=== PATIENT | male | born 1975 | race Caucasian/White ===

== ENCOUNTER 2022-04-09 01:39 | Observation (INO) ==
[2022-04-09] MEDS ORDERED: NITROGLYCERIN 2% OINTMENT 30GM TUBE EXT ONE (01:58)
[2022-04-09] MEDS ORDERED: ASPIRIN CHEW 324 MG PO STA (01:58)
[2022-04-09 05:18] LABS: D Dimer < 190 ug/L FEU (0-500)
[2022-04-09] MEDS ORDERED: ASPIRIN CHEW 324 MG ONE (05:33)
[2022-04-09] MEDS ORDERED: NITROGLYCERIN 2% OINTMENT 30GM TUBE ONE (05:33)
[2022-04-09 05:43] LABS: Albumin Globulin Ratio 1.8 (0.9-2); Albumin Level 4.6 gm/dl (3.4-5.0); BUN Creatinine Ratio 16.3 (10-20); Bilirubin,Total 0.5 mg/dl (0.2-1.0); Calcium 9.9 mg/dl (8.5-10.1); Creatinine Clr Calc Pharmacy 122.1 ml/min; Est GFR (African American) 120.5 ml/min; Globulin 2.5 gm/dl (2.5-4.0); Potassium 4.1 mmol/L (3.5-5.1); Total Protein 7.1 gm/dl (6.0-8.3); Troponin I High Sensitivity 3.1 pg/ml (0-20)
--- NOTE | 2022-04-09 05:53 | Emergency Department Note ---
History of Present Illness General Chief complaint: Shoulder Pain Stated complaint: L SHOULDER PAIN Time Seen by Provider: 04/09/22 01:47 History of Present Illness Maximum Pain Intensity: 8 This is a 46-year-old male presenting to the emergency department for evaluation of atraumatic left shoulder pain that began shortly after laying down to go to bed tonight. The patient states the pain was initially in the upper posterior part of the shoulder, but has slowly come to the left upper anterior shoulder. He has had the discomfort for about 2 hours and rates the pain a dull 8/10. The patient has a history of paroxysmal SVT and dyslipidemia, following with Dr. Hussein locally. The patient is on diltiazem daily as well as metoprolol as needed. He does not report any recent injuries or traumas to the shoulder. He is fairly active and tries to exercise regularly and has not noticed any shoulder pain until tonight. No fevers or chills. There is family history of cardiac disease. The patient is traveling out of state this weekend and is concerned his symptoms may be related to his heart. He did look at his apple watch which showed him in normal sinus rhythm at 66 bpm at home. He has not taken anything [id number] for his symptoms. Of note this patient was primarily seen during a [facility] downtime, and certain elements of the chart may be scanned into the medical record at a later date. Home Medications Medication Instructions Recorded Confirmed Type diltiazem HCl 120 mg capsule,24 120 mg PO DAILY 08/02/19 04/09/22 History hr,extended release famotidine 10 mg chewable tablet 10 - 20 mg PO DAILY PRN Acid Reflux 07/31/20 04/09/22 History metoprolol succinate 25 mg 25 mg PO DAILY PRN palpitations 05/28/21 04/09/22 Rx tablet,extended release 24 hr #90 tabs cetirizine 10 mg tablet (Zyrtec) 10 mg PO DAILY 06/19/21 04/09/22 History tacrolimus 0.03 % topical ointment 1 applic topical BID #100 grams 12/17/21 04/09/22 Rx (Protopic) Nexium 20 mg 04/09/22 History Allergies Allergy/AdvReac Type Severity Reaction Status Date / Time amoxicillin Allergy Intermediate full bad Verified 12/17/21 14:40 hives or rashes Penicillins Allergy Mild . Verified 12/17/21 14:40 cephalexin [From Keflex] Allergy Hives Verified 12/17/21 14:40 Past Med/Surg History Medical History Acquired deviated nasal septum Allergic rhinitis due to dust Allergic rhinitis due to other allergen Allergic rhinitis due to pollen BPH (benign prostatic hyperplasia) Cerumen impaction GERD (gastroesophageal reflux disease) Hoarseness Lower back pain Mixed conductive and sensorineural hearing loss of both ears Pelvic pain in male Prostatitis SVT (supraventricular tachycardia) Ulnar nerve palsy Urticaria Surgical History Status post LASIK surgery Family History Family/Other Cancer Heart disease Raynauds disease Rheumatoid arthritis Hyperlipidemia Father SVT (supraventricular tachycardia) Other Hypertension Social History Smoking Status: Never smoker Hx Alcohol Use: Yes Preferred Language: Hebrew marital status: current occupational status: employed Feels Safe at Home: Yes Review of Systems A total of 10 systems reviewed and were otherwise negative Physical Exam Vital Signs Vital Signs - 24 hr 04/09/22 01:42 04/09/22 06:06 Temperature 36.4 C L Temperature Source Temporal Artery Scan Pulse Rate 72 Pulse Rate [Apical] 68 Pulse Rhythm [Apical] Regular Respiratory Rate 18 18 Respiratory Effort / Characteristics Non-Labored Spontaneous Respiratory Depth Normal Normal Blood Pressure 155/100 H Blood Pressure [Left Arm] 125/82 Blood Pressure Mean 118 Blood Pressure Mean [Left Arm] 96 Blood Pressure Position Sitting Pulse Oximetry 100 98 Oxygen Delivery Method Room Air Room Air Sepsis Recent Fever Within 48 Hours No Sepsis New/Unexplained Change in Mental Status No Sepsis Action Taken by Nursing No Action Required VITALS: Vitals are noted on the nurse's note and reviewed by myself. Vital signs stable. GENERAL: Well-developed, well-nourished, white male, who is in no acute distress and resting comfortably. Patient is cooperative with the examination. HEAD: Normocephalic atraumatic. MOUTH: Mucous membranes moist. Tonsils are not enlarged. Pharynx without erythema, blood, or exudate. Uvula midline. Airway patent. NECK: Supple without nuchal rigidity. No lymphadenopathy. No thyromegaly. Cervical spine is nontender. HEART: Regular rate and rhythm without murmurs gallops or rubs. LUNGS: Clear to auscultation bilaterally without wheezes, rales or rhonchi. No retractions or accessory muscle use. ABDOMEN: Positive normal bowel sounds x 4. Soft, nontender, without masses or organomegaly. No guarding or rebound tenderness. MUSCULOSKELETAL: No muscle atrophy, erythema, or edema noted. Full range of motion in the left shoulder. No tenderness on palpation through this distribution. Vehicle Assembly Inspector strength is 5/5. NEURO: Patient was alert and oriented to person place and time. CN II through XII grossly intact. Course Administered Medications Discontinued Medications Aspirin (Aspirin Chew 324 Mg) 324 mg PO NOW [facility] Stop: 04/09/22 01:59 Last Admin: 04/09/22 05:35 Dose: 324 mg Documented By: DOMINGO Aspirin (Aspirin Chew 324 Mg) Confirm Administered Dose 324 mg .ROUTE .STWaveseis-MED ONE Stop: 04/09/22 05:34 Last Admin: 04/09/22 05:36 Dose: Not Given Documented By: DOMINGO Cetirizine HCl (Cetirizine Hcl 10 Mg Tablet) 10 mg PO DAILY [facility] Stop: 05/09/22 12:59 Last Admin: 04/09/22 14:06 Dose: Not Given Documented By: SRUTHI Diltiazem HCl (Diltiazem Er 120 Mg Capcr) 120 mg PO DAILY [facility] Stop: 05/09/22 12:59 Last Admin: 04/09/22 13:08 Dose: 120 mg Documented By: SRUTHI Nitroglycerin (Nitroglycerin 2% Ointment 30gm Tube) 1 inch EXT NOW ONE Stop: 04/09/22 01:59 Last Admin: 04/09/22 05:36 Dose: 1 inch Documented By: DOMINGO Nitroglycerin (Nitroglycerin 2% Ointment 30gm Tube) Confirm Administered Dose 18 inch .ROUTE .STK-MED ONE Stop: 04/09/22 05:34 Last Admin: 04/09/22 05:36 Dose: Not Given Documented By: DOMINGO Pantoprazole Sodium (Pantoprazole 40 Mg Tab) 40 mg PO DAILY [facility] Stop: 05/09/22 12:59 Last Admin: 04/09/22 14:06 Dose: Not Given Documented By: SRUTHI Medical Decision Making Differential Diagnosis Differential diagnosis includes, but is not limited to: Myocardial infarction, dysrhythmia, pericarditis, pneumothorax, aortic aneurysm/dissection, DVT/PE, anxiety, GERD, PUD, electrolyte imbalance, thyroid disorder, pneumonia, bronchitis, pancreatitis, and others Laboratory Data Result diagrams: 04/09/22 02:03 04/09/22 02:03 Lab Results 04/09/22 04/09/22 04/09/22 Range/Units 02:03 02:03 02:03 WBC 9.14 (4.8-10.8) K/ul RBC 5.69 (4.63-6.08) M/uL Hgb 15.8 (14.0-18.0) g/dl Hct 47.0 (40.1-51.0) % MCV 82.6 (80.0-100.0) fL MCH 27.8 (25.0-34.0) pg MCHC 33.6 (32.0-36.0) g/dL RDW Std Deviation 37.6 (36.4-46.3) fL RDW Coeff of Barbie 12.6 (11.5-14.5) % Plt Count 307 (130-400) K/uL MPV 9.3 L (9.4-12.4) fL Immature Gran % (Auto) 0.3 % Neut % (Auto) 38.4 % Lymph % (Auto) 46.0 % [place] % (Auto) 11.8 % Eos % (Auto) 3.1 % Baso % (Auto) 0.4 % Neut # (Auto) 3.51 (1.4-6.5) K/uL Lymph # (Auto) 4.20 H (1.2-3.4) K/uL [place] # (Auto) 1.08 H (0.24-0.82) K/uL Eos # (Auto) 0.28 (0-0.50) K/uL Baso # (Auto) 0.04 (0-0.2) K/uL Immature Gran # (Auto) 0.03 H (0.00-0.02) K/uL D-Dimer < 190 (0-500) ug/L FEU Sodium 138 (136-145) mmol/L Potassium 4.1 (3.5-5.1) mmol/L Chloride 104 (98-107) mmol/L Carbon Dioxide 27 (21-32) mmol/L Anion Gap 7 (3-11) BUN 14 (6-23) mg/dl Creatinine 0.86 (0.6-1.4) mg/dl Est Cr Clr Drug Dosing 122.1 ml/min Est GFR ( Amer) 120.5 ml/min Est GFR (Non-Af Amer) 104.0 ml/min BUN/Creatinine Ratio 16.3 (10-20) Glucose 84 (70-99(Fasting)) mg/dl Calcium 9.9 (8.5-10.1) mg/dl Total Bilirubin 0.5 (0.2-1.0) mg/dl AST 33 (13-39) U/L ALT 48 (7-52) U/L Alkaline Phosphatase 113 H (34-104) U/L Troponin I High Sens 3.1 (0-20) pg/ml Total Protein 7.1 (6.0-8.3) gm/dl Albumin 4.6 (3.4-5.0) gm/dl Globulin 2.5 (2.5-4.0) gm/dl Albumin/Globulin Ratio 1.8 (0.9-2) Lipase 13 (11-82) U/L SARS-CoV-2, RNA, NAAT (NEGATIVE) 04/09/22 04/09/22 Range/Units 04:50 06:11 WBC (4.8-10.8) K/ul RBC (4.63-6.08) M/uL Hgb (14.0-18.0) g/dl Hct (40.1-51.0) % MCV (80.0-100.0) fL MCH (25.0-34.0) pg MCHC (32.0-36.0) g/dL RDW Std Deviation (36.4-46.3) fL RDW Coeff of Barbie (11.5-14.5) % Plt Count (130-400) K/uL MPV (9.4-12.4) fL Immature Gran % (Auto) % Neut % (Auto) % Lymph % (Auto) % [place] % (Auto) % Eos % (Auto) % Baso % (Auto) % Neut # (Auto) (1.4-6.5) K/uL Lymph # (Auto) (1.2-3.4) K/uL [place] # (Auto) (0.24-0.82) K/uL Eos # (Auto) (0-0.50) K/uL Baso # (Auto) (0-0.2) K/uL Immature Gran # (Auto) (0.00-0.02) K/uL D-Dimer (0-500) ug/L FEU Sodium (136-145) mmol/L Potassium (3.5-5.1) mmol/L Chloride (98-107) mmol/L Carbon Dioxide (21-32) mmol/L Anion Gap (3-11) BUN (6-23) mg/dl Creatinine (0.6-1.4) mg/dl Est Cr Clr Drug Dosing ml/min Est GFR ( Amer) ml/min Est GFR (Non-Af Amer) ml/min BUN/Creatinine Ratio (10-20) Glucose (70-99(Fasting)) mg/dl Calcium (8.5-10.1) mg/dl Total Bilirubin (0.2-1.0) mg/dl AST (13-39) U/L ALT (7-52) U/L Alkaline Phosphatase (34-104) U/L Troponin I High Sens 2.7 (0-20) pg/ml Total Protein (6.0-8.3) gm/dl Albumin (3.4-5.0) gm/dl Globulin (2.5-4.0) gm/dl Albumin/Globulin Ratio (0.9-2) Lipase (11-82) U/L SARS-CoV-2, RNA, NAAT NEGATIVE (NEGATIVE) Imaging Data Radiologist's Impression: Shoulder X-Ray 04/09/22 01:49 XR shoulder LT min 2V routine CLINICAL HISTORY: shoulder pain TECHNIQUE: 3 views of the left shoulder were obtained. Comparison: Comparison is made to left shoulder radiographs 02/13/2016 FINDINGS: There is no evidence of an acute fracture. Joint spaces are well-preserved. The overlying soft tissues are unremarkable. The visualized portions of the lungs are clear. IMPRESSION: No evidence of acute osseous injury. ACT 112: Negative or not required by law. Electronically signed by: Oscar Crowe M.D. 04/09/2022 7:36 AM Chest X-Ray 04/09/22 06:49 XR chest 1V portable CLINICAL HISTORY: chest/shoulder pain TECHNIQUE: Single frontal radiograph of the chest was obtained. Comparison: None available at the time of this dictation. FINDINGS: No lines and tubes are seen. The cardiomediastinal silhouette is normal. Prominence and cephalization of the vasculature is seen. No evidence of pleural effusion or pneumothorax. IMPRESSION: Mild pulmonary edema. ACT 112: Negative or not required by law. Electronically signed by: Oscar Crowe M.D. 04/09/2022 7:04 AM ECG Data Attestation: I personally reviewed and interpreted this ECG as follows: Indication: + back/shoulder pain Additional Comments: Normal sinus rhythm @77bpm No significant ST elevation Minimal voltage criteria for LVH Nonspecific ST abnormality When compared with ECG of 02-NOV-2018 21:21, Premature ventricular complexes are no longer Present MDM Narrative Physical exam and history were performed. Nursing notes, EMR, and Medication List were personally reviewed. Patient was primarily seen during a [facility] downtime. Patient appears to have atypical left shoulder pain bringing him to the ER. The patient discomfort was initially more posterior, but is now in the anterior left shoulder. He is with full range of motion of the shoulder and does not have injury or trauma. No palpable tenderness is identified. The patient does have history of paroxysmal SVT and follows with Dr. Hussein locally. IV access was established and labs were obtained. He was hydrated normal saline and given aspirin and Nitropaste was applied. An order was placed for continuous cardiac monitoring. The monitor shows a rate of 72 with normal sinus rhythm. Blood work is as above and was reviewed. He does not have a significantly elevated white blood cell count, gross anemia, bandemia, or significant electrolyte imbalance. Troponin x2 is negative. D-dimer is negative. X-rays were reviewed by myself and radiology showing no acute process. COVID is negative. The patient did feel improved after the aspirin and nitro. Overall I have concern for the patient's symptoms. He is having atraumatic left shoulder pain and does have a heart history. He likely needs evaluation by cardiology on urgent basis, and because of his symptoms I did discuss the case with the on-call hospitalist team. They did agree to evaluate the patient here in the ER. Please see their dictation for further patient course, plan, disp osition. The chart was completed utilizing [employer] Speech Voice Recognition Software. Grammatical errors, random word insertions, pronoun errors, and incomplete sentences are an occasional consequence of this system due to software limitations, ambient noise, and hardware issues. Any formal questions or concerns about the content, text, or information contained within the body of this dictation should be directly addressed to the provider for clarification. . Impression & Plan Atypical chest pain, Left shoulder pain Discharge Plan Visit Data Chief Complaint: Shoulder Pain Stated Complaint: L SHOULDER PAIN ED Provider: Amara Irvin ED Midlevel Provider: Lauri Echeverria Discharge Problem: Atypical chest pain, Left shoulder pain Patient Disposition: Admitted As Inpatient Condition: Good Discharge Instructions Interventions: ED Discharge Assessment Last Done: 04/09/22 12:25
[2022-04-09 06:55] LABS: Basophils # (auto) 0.04 K/uL (0-0.2); Basophils % (auto) 0.4 %; Eosinophils # (auto) 0.28 K/uL (0-0.50); Eosinophils % (auto) 3.1 %; Hemoglobin 15.8 g/dl (14.0-18.0); Immature Granulocytes # (auto) 0.03 K/uL (0.00-0.02); Immature Granulocytes % (auto) 0.3 %; Mean Corpuscular Hemoglobin 27.8 pg (25.0-34.0); Mean Corpuscular Hgb Conc 33.6 g/dL (32.0-36.0); Mean Corpuscular Volume 82.6 fL (80.0-100.0); Mean Platelet Volume 9.3 fL (9.4-12.4); Monocytes # (auto) 1.08 K/uL (0.24-0.82); Monocytes % (auto) 11.8 %; Neutrophils # (auto) 3.51 K/uL (1.4-6.5); Neutrophils % (auto) 38.4 %; Platelet Count 307 K/uL (130-400); RDW Coefficient of Variation 12.6 % (11.5-14.5); RDW Standard Deviation 37.6 fL (36.4-46.3); Red Blood Count 5.69 M/uL (4.63-6.08); White Blood Count 9.14 K/ul (4.8-10.8)
--- NOTE | 2022-04-09 07:05 | XRay Report ---
XR chest 1V portable CLINICAL HISTORY: chest/shoulder pain TECHNIQUE: Single frontal radiograph of the chest was obtained. Comparison: None available at the time of this dictation. FINDINGS: No lines and tubes are seen. The cardiomediastinal silhouette is normal. Prominence and cephalization of the vasculature is seen. No evidence of pleural effusion or pneumothorax. IMPRESSION: Mild pulmonary edema. ACT 112: Negative or not required by law. Electronically signed by: Oscar Crowe M.D. 04/09/2022 7:04 AM
--- NOTE | 2022-04-09 07:37 | XRay Report ---
XR shoulder LT min 2V routine CLINICAL HISTORY: shoulder pain TECHNIQUE: 3 views of the left shoulder were obtained. Comparison: Comparison is made to left shoulder radiographs 02/13/2016 FINDINGS: There is no evidence of an acute fracture. Joint spaces are well-preserved. The overlying soft tissue s are unremarkable. The visualized portions of the lungs are clear. IMPRESSION: No evidence of acute osseous injury. ACT 112: Negative or not required by law. Electronically signed by: Oscar Crowe M.D. 04/09/2022 7:36 AM
--- NOTE | 2022-04-09 11:26 | Electrocardiogram Report ---
Test Reason : Blood Pressure : / mmHG Vent. Rate : 083 BPM Atrial Rate : 083 BPM P-R Int : 192 ms QRS Dur : 088 ms QT Int : 364 ms P-R-T Axes : 010 -33 -07 degrees QTc Int : 427 ms Poor data quality, interpretation may be adversely affected Normal sinus rhythm Left axis deviation Moderate voltage criteria for LVH, may be normal variant Abnormal ECG When compared with ECG of 02-NOV-2018 21:21, Premature ventricular complexes are no longer Present Confirmed by Nabeel Driver ([id number]) on 04/09/2022 11:26:22 AM Referred By: REFERRED SELF Confirmed By:Edgard Driver
--- NOTE | 2022-04-09 11:28 | Electrocardiogram Report ---
Test Reason : Blood Pressure : / mmHG Vent. Rate : 077 BPM Atrial Rate : 077 BPM P-R Int : 144 ms QRS Dur : 086 ms QT Int : 370 ms P-R-T Axes : 046 -29 006 degrees QTc Int : 418 ms Poor data quality, interpretation may be adversely affected Normal sinus rhythm Minimal voltage criteria for LVH, may be normal variant Nonspecific ST abnormality Abnormal ECG When compared with ECG of 09-APR-2022 01:53, (unconfirmed) No significant change was found Confirmed by Nabeel Driver ([id number]) on 04/09/2022 11:28:03 AM Referred By: REFERRED SELF Confirmed By:Edgard Driver
--- NOTE | 2022-04-09 11:29 | Electrocardiogram Report ---
Test Reason : Blood Pressure : / mmHG Vent. Rate : 066 BPM Atrial Rate : 066 BPM P-R Int : 146 ms QRS Dur : 092 ms QT Int : 382 ms P-R-T Axes : 031 -28 -23 degrees QTc Int : 400 ms Normal sinus rhythm Minimal voltage criteria for LVH, may be normal variant Borderline ECG When compared with ECG of 09-APR-2022 01:55, (unconfirmed) No significant change was found Confirmed by Nabeel Driver ([id number]) on 04/09/2022 11:29:06 AM Referred By: REFERRED SELF Confirmed By:Edgard Driver
--- NOTE | 2022-04-09 11:46 | History & Physical Report ---
Date of Service April 09, 2022 Assessment & Plan (1) Left shoulder pain: Plan: Patient complains of left shoulder pain which persisted after he went to bed. Concerning for referred pain, although unlikely. Troponin, EKG within normal limits Patient has a history of paroxysmal SVT since childhood He is willing to undergo stress test (2) Paroxysmal supraventricular tachycardia: Plan: Diagnosed when he was 4 years old Has been on diltiazem and metoprolol Plan If stress test is negative, anticipate discharge History of Present Illness Chief Complaint: shoulder pain Primary Care Provider: Conor Raines This is a 46-year-old male with a history of longstanding PSVT since he was 4 years old, well-controlled on diltiazem and beta-blockers, GERD, who presents to the hospital today on account of left shoulder pain. Patient said that the pain started shortly after he went to bed. Initially he thought he had strained his shoulder but denies any recent trauma to the shoulder. Initially the pain was dull, 8 out of 10 in intensity and radiating to the posterior back. However he denies any radiation to the neck or the jaw and denies any shortness of breath or chest pain. He checked his apple watch and it showed he was in sinus rhythm at the rate of about 60 to 70 bpm at home. He usually follows with a dance instructor who monitors his paroxysmal SVT. Here in emergency department an EKG was done which showed normal sinus rhythm and no ST changes. He says he plans to travel out of town but was concerned this could be cardiac. He has agreed to undergo an exercise stress test. Initial troponin is within normal limits. Of note he denies any significant family history of early heart attack. Allergies Allergy/AdvReac Type Severity Reaction Status Date / Time amoxicillin Allergy Intermediate full bad Verified 12/17/21 14:40 hives or rashes Penicillins Allergy Mild . Verified 12/17/21 14:40 cephalexin [From Keflex] Allergy Hives Verified 12/17/21 14:40 Home Medications Medication Instructions Recorded Confirmed Type diltiazem HCl 120 mg capsule,24 120 mg PO DAILY 08/02/19 04/09/22 History hr,extended release famotidine 10 mg chewable tablet 10 - 20 mg PO DAILY PRN Acid Reflux 07/31/20 04/09/22 History metoprolol succinate 25 mg 25 mg PO DAILY PRN palpitations 05/28/21 04/09/22 Rx tablet,extended release 24 hr #90 tabs cetirizine 10 mg tablet (Zyrtec) 10 mg PO DAILY 06/19/21 04/09/22 History tacrolimus 0.03 % topical ointment 1 applic topical BID #100 grams 12/17/21 04/09/22 Rx (Protopic) Nexium 20 mg 04/09/22 History Past Med/Surg History Medical History Acquired deviated nasal septum Allergic rhinitis due to dust Allergic rhinitis due to other allergen Allergic rhinitis due to pollen BPH (benign prostatic hyperplasia) Cerumen impaction GERD (gastroesophageal reflux disease) Hoarseness Lower back pain Mixed conductive and sensorineural hearing loss of both ears Pelvic pain in male Prostatitis SVT (supraventricular tachycardia) Ulnar nerve palsy Urticaria Surgical History Status post LASIK surgery Family History Family/Other Cancer Heart disease Raynauds disease Rheumatoid arthritis Hyperlipidemia Father SVT (supraventricular tachycardia) Other Hypertension Social History Smoking Status: Never smoker Hx Alcohol Use: Yes Preferred Language: Nigerian marital status: current occupational status: employed Feels Safe at Home: Yes Review of Systems Review of Systems: All systems reviewed are negative, apart from the ones con tained in the history. Physical Exam Physical Exam: The patient is awake, alert and oriented 3, well developed and well nourished, normocephalic and atraumatic, lying in bed and in no acute distress. HEENT--PERRL, EOMI, mucous membranes and oropharynx mildly dry Neck--supple. No JVD. No bruits. Thyroid normal, trachea midline, no adenopathy. Heart--normal S1 and S2. No murmurs, rubs or gallops. Lungs--clear bilaterally, no respiratory distress, no accessory muscle use. Abdomen--normal bowel sounds and soft. Mild epigastric and left sided abdominal pain Extremities--no cyanosis or clubbing. No edema. Dermatologic--normal skin turgor, normal color, no abnormal lymph nodes, no rash. Neurologic--cranial nerves II through XII grossly intact. Rheumatologic--normal range of motion. Psychiatric--normal affect. Results & Data Results & Data ([facility]) Vital Signs (Past 12 Hours) Vital Signs Temp Pulse Pulse Resp BP BP Pulse Ox 04/09/22 10:51 72 16 112/80 97 04/09/22 06:06 68 18 125/82 98 04/09/22 01:42 97.5 F L 72 18 155/100 H 100 O2 Del Method 04/09/22 10:51 Room Air 04/09/22 06:06 Room Air 04/09/22 01:42 Room Air PG Care Time/CCT Total # of Minutes Spent Total Time Spent with Patient: Total time spent is greater than 50% in coordination of care (as documented) at patient's floor/unit and/or counseling patient: Coding Level of Care Code INT OBSERVATION CARE 30M LVL 1 Diagnoses Left shoulder pain M25.512 Paroxysmal supraventricular tachycardia I47.1 Time Spent (min) 35
--- NOTE | 2022-04-09 12:57 | XCELERA ---
[id number]
[2022-04-09] MEDS ORDERED: CETIRIZINE HCL 10 MG TABLET PO SCH (13:00)
[2022-04-09] MEDS ORDERED: PANTOprazole 40 MG TAB PO SCH (13:00)
[2022-04-09] MEDS ORDERED: dilTIAZem ER 120 MG CAPCR PO SCH (13:00)
--- NOTE | 2022-04-09 13:44 | Discharge Summary ---
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 Patient said that the pain started shortly after he went to bed. Initially he thought he had strained his shoulder but denies any recent trauma to the shoulder. Initially the pain was dull, 8 out of 10 in intensity and radiating to the posterior back. However he denies any radiation to the neck or the jaw and denies any shortness of breath or chest pain. He checked his apple watch and it showed he was in sinus rhythm at the rate of about 60 to 70 bpm at home. He usually follows with a claims associate who monitors his paroxysmal SVT. Here in emergency department an EKG was done which showed normal sinus rhythm and no ST changes. He says he plans to travel out of town but was concerned this could be cardiac. He has agreed to undergo an exercise stress test. Initial troponin is within normal limits. Of note he denies any significant family history of early heart attack. Principal Diagnosis left shoulder pain Discharge Exam The patient is awake, alert and oriented 3, well developed and well nourished, normocephalic and atraumatic, lying in bed and in no acute distress. HEENT--PERRL, EOMI, mucous membranes and oropharynx mildly dry Neck--supple. No JVD. No bruits. Thyroid normal, trachea midline, no adenopathy. Heart--normal S1 and S2. No murmurs, rubs or gallops. Lungs--clear bilaterally, no respiratory distress, no accessory muscle use. Abdomen--normal bowel sounds and soft. Mild epigastric and left sided abdominal pain Extremities--no cyanosis or clubbing. No edema. Dermatologic--normal skin turgor, normal color, no abnormal lymph nodes, no rash. Neurologic--cranial nerves II through XII grossly intact. Rheumatologic--normal range of motion. Psychiatric--normal affect. Discharge Data Allergies Allergy/AdvReac Type Severity Reaction Status Date / Time amoxicillin Allergy Intermediate full bad Verified 12/17/21 14:40 hives or rashes Penicillins Allergy Mild . Verified 12/17/21 14:40 cephalexin [From Keflex] Allergy Hives Verified 12/17/21 14:40 Consultations 04/09/22 05:39 ED Decision to Admit Stat Hospital Course (1) Left shoulder pain: Patient complains of left shoulder pain which persisted after he went to bed. Concerning for referred pain, although unlikely. Troponin, EKG within normal limits Patient has a history of paroxysmal SVT since childhood He underwent an exercise stress test which was normal (2) Paroxysmal supraventricular tachycardia: Diagnosed when he was 4 years old Has been on diltiazem and metoprolol Plan discharge home Total Time Total Time Spent Total Time Spent (In Minutes): 35 Discharge Plan Discharge Items Patient Disposition: Home - Self-Care Reason For Visit: L SHOULDER PAIN Discharge Diagnosis: left shoulder pain Activity: Resume your previous activity Non-emergency contact: Primary Care Provider Call non-emergency contact if: you have any medication questions Follow-up/Referrals: Conor Raines [Primary Care Provider] - Diet: Regular Addtl Attending Provider Instructions: please make appointment to follow up with your regular doctors Pending Studies at Discharge: No Stand-Alone Forms: My [facility], Smoking Cessation Medications and DC Order Prescriptions: Continued metoprolol succinate 25 mg tablet extended release 24 hr 25 mg PO DAILY PRN (Reason: palpitations) Qty: 90 3RF Rx Instructions: 1/2 to 1 pill daily as needed for palpitations cetirizine [Zyrtec] 10 mg tablet 10 mg PO DAILY tacrolimus [Protopic] 0.03 % ointment 1 applic topical BID Qty: 100 3RF famotidine 10 mg tablet,chewable 10 - 20 mg PO DAILY PRN (Reason: Acid Reflux) diltiazem HCl 120 mg capsule,extended release 24 hr 120 mg PO DAILY Nexium 20 mg Discharge Orders: Discharge Order (Routine); Ordered 04/09/22 Ordered By: Nicolette Cho Admission Data Admit Date/Time: 04/09/22 08:30 Attending Provider: Nicolette Cho Admit Provider: Nicolette Cho Primary Care Provider: Coonr Raines Other Providers: Pranav Adrian Coding Level of Care Code OBSERV/HOSP SAME DATE LVL 1 Diagnoses Left shoulder pain M25.512 Paroxysmal supraventricular tachycardia I47.1 Time Spent (min) 35
== END 2022-04-09 14:14 | disposition home or self-care (01) ==
LOC: EDINP 01:39 → ED 01:39 → EDINP 12:25